=== PATIENT | female | born 1990 | race Caucasian/White ===

== ENCOUNTER 2017-02-05 08:07 | Emergency (ER) | payer MEDICAID ==
[2017-02-05 08:09] VITALS: BMI 37.3
[2017-02-05] MEDS ORDERED: Sodium Chloride 0.9% 500 ML IV STA ×2 (09:22→09:24)
--- NOTE | 2017-02-05 09:24 | ED PDOC ---
HPI: Back Time Seen by Provider: 02/05/17 09:02 Chief Complaint (Nursing): Back Pain Chief Complaint (Provider): Low back pain History Per: Patient History/Exam Limitations: no limitations Onset/Duration Of Symptoms: Days (4) Current Symptoms Are (Timing): Still Present Additional History Per: Patient Additional Complaint(s): Pt. with low back pain. Also upper abd pain. No nausea, vomit, diarrhea, weakness, headaches, dizziness, dysuria, new food or drinks, back pain. No chest pain. No fever. No injury. Past Medical History Reviewed: Nursing Documentation, Vital Signs Vital Signs: Last Vital Signs Temp 99.4 F 02/05/17 08:08 Pulse 98 H 02/05/17 08:08 Resp 16 02/05/17 08:08 BP 142/81 02/05/17 08:08 Pulse Ox 100 02/05/17 08:08 - Medical History PMH: No Chronic Diseases - Surgical History Surgical History: No Surg Hx - Family History Family History: States: Unknown Family Hx - Social History Current smoker - smoking cessation education provided: No Alcohol: None Drugs: Denies - Immunization History Hx Tetanus Toxoid Vaccination: No Hx Influenza Vaccination: No Hx Pneumococcal Vaccination: No - Home Medications Home Medications: Ambulatory Orders Medication Instructions Recorded Ketoconazole [Nizoral 120 ml] 10 ml TP DAILY #1 [facility] 01/25/15 Ketoconazole [Nizoral 120 ml] 120 ml TP DAILY #1 [facility] 01/25/15 - Allergies Allergies/Adverse Reactions: Allergies Allergy/AdvReac Type Severity Reaction Status Date / Time No Known Allergies Allergy Verified 01/25/15 22:30 Review of Systems ROS Statement: Except As Marked, All Systems Reviewed And Found Negative Gastrointestinal: Positive for: Abdominal Pain Musculoskeletal: Positive for: Back Pain Physical Exam - Reviewed Nursing Documentation Reviewed: Yes Vital Signs Reviewed: Yes - Physical Exam Appears: Positive for: Non-toxic, No Acute Distress Head Exam: Positive for: ATRAUMATIC, NORMAL INSPECTION, NORMOCEPHALIC Skin: Positive for: Normal Color, Warm, DRY Eye Exam: Positive for: EOMI, Normal appearance, PERRL ENT: Positive for: Normal ENT Inspection Neck: Positive for: Normal, Painless ROM Cardiovascular/Chest: Positive for: Regular Rate, Rhythm Respiratory: Positive for: CNT, Normal Breath Sounds Gastrointestinal/Abdominal: Positive for: Bowel Sounds, Soft, Tenderness (mild across upper) Back: Positive for: Other (mild across lower). Negative for: L CVA Tenderness, R CVA Tenderness Extremity: Positive for: Normal ROM. Negative for: Tenderness, Pedal Edema Neurologic/Psych: Positive for: Alert, Oriented - Laboratory Results Result Diagrams: 02/05/17 10:40 02/05/17 10:40 Interpretation Of Abn Labs: 14.2 wbc - ECG O2 Sat by Pulse Oximetry: 100 Pulse Ox Interpretation: Normal - Progress ED Course And Treament: 1233: Still mild abd pain diffuse. Will ct to get further eval. Will give bentyl and pepcid. 1550: Stable. AAOx3. No pain. Fu with pcp. Tolerated Po. Disposition - Clinical Impression Clinical Impression: Back pain, Abdominal pain - Patient ED Disposition Is Patient to be Admitted: No - Disposition Referrals: [facility] [Outside] - 02/06/17 Disposition: Routine/Home Disposition Time: 15:51 Condition: STABLE Additional Instructions: Return if not better in 3 days. Instructions: Abdominal Pain (ED), Acute Low Back Pain (ED) Forms: [employer] (H[place]uran)
[2017-02-05 10:49] LABS: BASO # 0.1 K/uL (0.0-0.2); BASO % 0.4 % (0.0-2.0); EOS % 0.3 % (0.0-4.0); HEMATOCRIT 40.8 % (34.0-47.0); LYMPH # 1.7 K/uL (1.0-4.3); LYMPH % 11.7 % (20.0-40.0); MEAN CELL VOLUME 90.1 fl (81.0-99.0); MEAN CORPUSCULAR HEMOGLOBIN 29.2 pg (27.0-31.0); MEAN CORPUSCULAR HGB CONC 32.4 g/dL (33.0-37.0); MEAN PLATELET VOLUME 9.7 fl (7.2-11.7); MONO # 0.5 K/uL (0.0-0.8); MONO % 3.6 % (0.0-10.0); NEUT # 11.9 K/uL (1.8-7.0); NRBC % 0.1 % (0.0-0.0); WHITE BLOOD COUNT 14.2 K/uL (4.8-10.8)
[2017-02-05 11:02] LABS: BLOOD UREA NITROGEN 12 mg/dl (7-17); CALCIUM 9.3 mg/dL (8.4-10.2); CARBON DIOXIDE 20 mmol/L (22-30); CHLORIDE 110 mmol/L (98-107); GFR AFRICAN-AMERICAN > 60; GLUCOSE,RANDOM 93 mg/dL (65-105); LIPASE 77 U/L (23-300); POTASSIUM 3.7 MMOL/L (3.6-5.0); SODIUM 143 mmol/l (132-148)
--- NOTE | 2017-02-05 15:34 | CT ---
PROCEDURE: CT abdomen pelvis dated 02/05/2017 HISTORY: Diffuse abdominal pain COMPARISON: None. TECHNIQUE: Contiguous axial images of the abdomen and pelvis performed without oral or intravenous contrast. Coronal and Sagittal reformats generated. Radiation dose: Total exam DLP = 949.06 mGy-cm. This CT exam was performed using one or more of the following dose reduction techniques: Automated exposure control, adjustment of the mA and/or kV according to patient size, and/or use of iterative reconstruction technique. FINDINGS: LOWER THORAX: The lung bases are free of focal consolidation. No effusion or basilar pneumothorax. Tiny hiatal hernia. Heart size is within range of normal. No significant pericardial effusion. LIVER: Liver exhibits normal size measuring approximately 15 point 4 cm in CC dimension. No obvious hepatic mass collection or calcification seen on this noncontrast study. GALLBLADDER AND BILE DUCTS: Gallbladder is physiologically distended. No definitive evidence of intraluminal gallbladder calculi. PANCREAS: The unenhanced pancreas appears unremarkable SPLEEN: Spleen exhibits normal size and attenuation pattern without obvious mass collection or calcification. ADRENALS: There are no adrenal lesions. KIDNEYS AND URETERS: Kidneys exhibit relatively symmetric size. Punctate calcifications seen in the posteromedial aspect lower pole left kidney. No evidence of hydronephrosis. BLADDER: The urinary bladder is incompletely distended which presumably accounts for thick-walled appearance. Cystitis should be excluded with urinalysis. REPRODUCTIVE: Uterus and adnexal structures grossly unremarkable. . APPENDIX: UnremarkableThe normal-appearing appendix best seen on axial image number [id number]. No periappendiceal inflammatory changes. . BOWEL: Evaluation of the bowel is somewhat limited due to the lack of oral contrast material. . The stomach is incompletely distended which presumably accounts for thick-walled appearance. Gastritis not excluded. Visualized loops of small bowel exhibit normal contour and caliber. No evidence of acute mechanical small bowel obstruction. Stool and air seen throughout the colon. No definitive mural wall thickening. PERITONEUM: Unremarkable. No fluid collection. No free air. Small fat containing umbilical hernia. LYMPH NODES: Unremarkable. No enlarged lymph nodes. VASCULATURE: No evidence of abdominal aortic or iliac artery aneurysms. BONES: The visualized lower thoracic and lumbar vertebral body segments intact. No evidence of acute compression fractures no retropulsed fragments. OTHER FINDINGS: None. IMPRESSION: There is incomplete distention of the urinary bladder which presumably accounts for thick-walled appearance however correlation with urinalysis recommended to exclude the possibility of a cystitis. Punctate nonobstructing calculus posteromedial aspect lower pole left kidney. No evidence of acute appendicitis. No evidence of cholelithiasis
[2017-02-05 16:17] VITALS: BP 132/74; PULSE 78; RESP 18; TEMP 98.6; O2SAT 97
== END 2017-02-05 16:21 | disposition home or self-care (01) ==
LOC: H.ER 08:07 → SUPCPDRO 08:07 → H.ER 16:21
DX: M54.5 Low back pain (principal); R10.9 Unspecified abdominal pain
CPT/HCPCS: 74176; 80048; 81025; 83690; 85025; 96374; 96375; 99284; J1885; J7040